=== PATIENT | female | born 1945 | race Asian ===

== ENCOUNTER 2018-02-18 05:10 | Emergency (ER) | payer OTHER ==
[~2018-02-18] VITALS: Ht 154.9 cm; Wt 61.0 kg
[2018-02-18 05:17] VITALS: BP 140/79
--- NOTE | 2018-02-18 05:17 | NUR ---
PATIENT PRESENTS TO ED WITH ABCESS TO LEFT SHOULDER OVER SCAPULA. AREA RED, WARM, WITH EDEMA. PT STATES PAINFUL TO TOUCH AND PAINFUL TO MOVE SHOULDER. DENIES N/V/D; SKIN IS PINK/WARM/DRY; AAOX4 WITH EVEN AND STEADY GAIT; LUNGS CLEAR BL; HR EVEN AND REGULAR; PT DENIES ANY FEVER, CP, SOB, OR COUGH AT THIS TIME; PATIENT STATES PAIN OF 7/10 AT THIS TIME; VSS; PATIENT POSITIONED FOR COMFORT; HOB ELEVATED; BEDRAILS UP X2; BED DOWN. ER MD MADE AWARE OF PT STATUS. CONTINUE TO MONITOR.
--- NOTE | 2018-02-18 05:17 | NUR ---
PATIENT AMBULATED TO ER BED 07.
--- NOTE | 2018-02-18 05:59 | NUR ---
Dr. Rocha evaluating patient at bedside.
--- NOTE | 2018-02-18 06:00 | NUR ---
Dr. Rocha performed I&D. Pt tolerated procedure well. Cleansed with NS. Covered with non-adhesive dressing. Reinforced with guaze. Secured with tape.
[2018-02-18] MEDS ORDERED: LIDOCAINE 1% ***ER ONLY *** 10 MG/ML VIAL INJ ONE (06:05)
[2018-02-18] MEDS ORDERED: LIDOCAINE MPF 1% - **ER/OR** 5 ML ONE (06:11)
[2018-02-18] MEDS ORDERED: KETOROLAC 60 MG/2 ML VIAL IM ONE (06:35)
[2018-02-18 06:45] VITALS: BP 140/79
--- NOTE | 2018-02-18 06:45 | NUR ---
Patient discharged with v/s stable. Written and verbal after care instructions given and explained. Patient alert, oriented and verbalized understanding of instructions. Ambulatory with steady gait. All questions addressed prior to discharge. ID band removed. Patient advised to follow up with PMD. Rx of Keflex, [place], Motrin given. Patient educated on indication of medication including possible reaction and side effects. Opportunity to ask questions provided and answered.
== END 2018-02-18 06:45 | disposition home or self-care (01) ==
LOC: MED 05:10
DX: L02.414 Cutaneous abscess of left upper limb (principal); E11.9 Type 2 diabetes mellitus without complications; I10 Essential (primary) hypertension; E78.5 Hyperlipidemia, unspecified
CPT/HCPCS: 10060; 82948; 96372; 99283; J1885; J2001